=== PATIENT | male | born 1990 | race Caucasian/White ===

== ENCOUNTER 2023-07-19 12:53 | Emergency (ER) | payer MEDICAID ==
[~2023-07-19] VITALS: Ht 182.9 cm; Wt 90.7 kg
[2023-07-19] MEDS: IV NS 0.9% 1,000 ML BAG IV ONE (14:29)
[2023-07-19] MEDS ORDERED: CT SWABBABLE VALVE TRANS SET 1 EA INFUS.SET MC ONE (14:41)
[2023-07-19] MEDS ORDERED: IOHEXOL-300 100 ML VIAL IV ONE (14:41)
[2023-07-19] MEDS ORDERED: IV NS 0.9% 250 ML IV ONE (14:41)
[2023-07-19 14:57] LABS: HEMATOCRIT 46 % (39-51); HEMOGLOBIN 15.7 g/dL (13.5-17.5); MEAN CORPUSCULAR HEMOGLOBIN 28 PG (26.0-33.0); MEAN CORPUSCULAR HGB CONC 34 g/dl (31.0-36.0); MEAN CORPUSCULAR VOLUME 82 fL (80-96); NEUTROPHILS % (AUTO) 68.2 % (43.0-81.0); PLATELET COUNT (AUTO) 232 K/uL (150-450); RED BLOOD CELL COUNT(AUTO) 5.63 MIL/uL (4.5-6.0); WHITE BLOOD COUNT (AUTO) 7.4 K/uL (4.3-11.0)
[2023-07-19 14:58] LABS: BASOPHILS % (AUTO) 0.3 % (0.0-2.0); EOSINOPHILS % (AUTO) 1.4 % (0.0-6.0); LYMPHOCYTES % (AUTO) 20.9 % (20.0-44.0); MONOCYTES % (AUTO) 9.2 % (2.0-12.0)
[2023-07-19 15:13] LABS: APPEARANCE,URINE SLIGHTLY CLOUDY (CLEAR); BILIRUBIN,URINE NEGATIVE (NEGATIVE); BLOOD, URINE NEGATIVE Ery/uL (NEGATIVE); COLOR,URINE YELLOW (YELLOW); KETONES,URINE NEGATIVE (NEGATIVE); LEUKOCYTE ESTERASE ,URINE NEGATIVE (NEGATIVE); NITRITE, URINE NEGATIVE (NEGATIVE); PROTEIN,URINE NEGATIVE (NEGATIVE); UGLUCOSE NEGATIVE (NEGATIVE); UROBILINOGEN,URINE 0.2 EU/dL (0.2)
[2023-07-19 15:32] LABS: ALBUMIN 4.8 g/dL (3.4-5.0); BILIRUBIN,DIRECT 0.3 mg/dL (0.0-0.2); BILIRUBIN,TOTAL 2.1 mg/dL (0.2-1.0); CREATININE 1.1 mg/dL (0.6-1.3); POTASSIUM 4.3 mmol/L (3.5-5.1); TOTAL PROTEIN, SERUM 9.2 g/dL (6.4-8.2)
[2023-07-19 15:58] LABS: ADD URINE CULTURE NO; BACTERIA,URINE None seen /HPF (None Seen); MUCUS,URINE None Seen /LPF (None Seen); RBC,URINE 0-2 /HPF (0-2); SQUAMOUS EPITHELIAL CELL,UR None Seen /HPF (None Seen); WBC,URINE NONE SEEN /HPF (0-3)
[2023-07-19 19:05] VITALS: BP 142/66; TEMP 98.2; O2SAT 100
== END 2023-07-19 18:01 | disposition home or self-care (01) ==
LOC: ER 12:59
DX: R19.7 Diarrhea, unspecified (principal); R10.12 Left upper quadrant pain; R10.32 Left lower quadrant pain
CPT/HCPCS: 99285; 74177; 96360; 85025; 80048; 83690; 80076; 81001; 36415; J7030; J7050; Q9967